=== PATIENT | female | born 1995 | race Caucasian/White ===

== ENCOUNTER 2021-01-19 01:42 | Emergency (ER) | payer OTHER ==
[2021-01-19 02:18] LABS: BASOPHIL 0.6 % (0-2); EOSINOPHIL 2.1 % (0-5); HCT 41.1 % (37.0-47.0); HGB 12.7 g/dl (12.5-16.0); LYMPHOCYTE 40.4 % (15-48); MCH 27.1 pg (25.0-31.0); MCHC 30.9 g/dL (32.0-36.0); MCV 87.8 fL (78.0-100.0); MPV 10.6 fL (6.0-9.5); NEUTROPHIL 49.7 % (41-80); NRBC 0; PLT 329 K/uL (150-400); RBC 4.68 M/uL (4.20-5.40); RDW 13.6 % (11.5-14.0); WBC 6.3 K/uL (4.0-10.5)
[2021-01-19 02:35] LABS: ALBUMIN 3.2 g/dL (3.4-5.0); BILIRUBIN - TOTAL 0.3 mg/dL (0.2-1.0); CREATININE 0.89 mg/dL (0.51-0.95); TOTAL PROTEIN 7.2 g/dL (6.4-8.2)
[2021-01-19 03:21] LABS: BILIRUBIN NEGATIVE (NEGATIVE); BLOOD NEGATIVE Ery/uL (NEGATIVE); CLARITY CLEAR (CLEAR); COLOR YELLOW (YELLOW); GLUCOSE (U) NORMAL (NORMAL); LEUKOCYTES 1+ Leu/uL (NEGATIVE); NITRITE NEGATIVE (NEGATIVE); PROTEIN NEGATIVE (NEGATIVE); SPECIFIC GRAVITY >=1.030 (1.001-1.030); UROBILINOGEN 0.2 mg/dL (0.2-1.0); pH 5.5 (5.0-9.0)
[2021-01-19 03:31] LABS: BACTERIA 2+; SQUAMOUS EPITHELIAL CELLS RARE; URINARY RBC RARE; URINARY WBC 20-50
[2021-01-19] MEDS ORDERED: BACTRIM DS TAB1 EACH PO (05:31)
== END 2021-01-19 05:43 | disposition home or self-care (01) ==
LOC: FER 01:42
PROVIDERS: Emergency Medicine
DX: N39.0 Urinary tract infection, site not specified (principal); R10.11 Right upper quadrant pain; R10.31 Right lower quadrant pain; E66.01 Morbid (severe) obesity due to excess calories; Z98.890 Other specified postprocedural states; Z90.49 Acquired absence of other specified parts of digestive tract
CPT/HCPCS: 36415; 71275; 80053; 81001; 85025; 87088; J0696; J1170; J2405; J7030; Q9967

== ENCOUNTER 2021-04-30 23:51 | Emergency (ER) | payer OTHER ==
[~2021-04-30 23:51] MED LIST: BACTRIM DS TAB1 EACH PO
[2021-05-01 03:27] LABS: BASOPHIL 0.6 % (0-2); EOSINOPHIL 1.2 % (0-5); HCT 41.1 % (37.0-47.0); HGB 12.7 g/dl (12.5-16.0); LYMPHOCYTE 24.7 % (15-48); MCH 26.8 pg (25.0-31.0); MCHC 30.9 g/dL (32.0-36.0); MCV 86.9 fL (78.0-100.0); MONOCYTE 6.3 % (0-12); MPV 10.8 fL (6.0-9.5); NEUTROPHIL 66.9 % (41-80); NRBC 0; PLT 274 K/uL (150-400); RBC 4.73 M/uL (4.20-5.40); RDW 12.4 % (11.5-14.0); WBC 6.6 K/uL (4.0-10.5)
[2021-05-01 03:48] LABS: ALBUMIN 3.5 g/dL (3.4-5.0); BILIRUBIN - TOTAL 0.4 mg/dL (0.2-1.0); BUN/CREAT RATIO (CALC) 16.7 RATIO; CREATININE 0.9 mg/dL (0.51-0.95); GLOBULIN (CALCULATION) 3.7 g/dL; POTASSIUM 4.1 mmol/L (3.5-5.1); TOTAL PROTEIN 7.2 g/dL (6.4-8.2)
[2021-05-01 04:58] LABS: BILIRUBIN NEGATIVE (NEGATIVE); BLOOD NEGATIVE Ery/uL (NEGATIVE); CLARITY CLEAR (CLEAR); COLOR YELLOW (YELLOW); GLUCOSE (U) NORMAL (NORMAL); LEUKOCYTES TRACE Leu/uL (NEGATIVE); NITRITE NEGATIVE (NEGATIVE); PROTEIN NEGATIVE (NEGATIVE); SPECIFIC GRAVITY >=1.030 (1.001-1.030); UROBILINOGEN 0.2 mg/dL (0.2-1.0); pH 5.5 (5.0-9.0)
[2021-05-01 05:03] LABS: BACTERIA 2+
[2021-05-01 05:04] LABS: AMORPHOUS URATES CRYSTALS TRACE
== END 2021-05-01 06:30 | disposition home or self-care (01) ==
LOC: FER 23:51
PROVIDERS: Emergency Medicine Emergency Medical Services
DX: K59.00 Constipation, unspecified (principal); R16.1 Splenomegaly, not elsewhere classified; K76.0 Fatty (change of) liver, not elsewhere classified
CPT/HCPCS: 36415; 80053; 81001; 83690; 85025; J1170; J1885; J2405; J7030

== ENCOUNTER 2021-05-04 15:38 | Emergency (ER) | payer OTHER ==
[2021-05-04 16:15] LABS: BILIRUBIN 2+ mg/dL (NEGATIVE); BLOOD NEGATIVE Ery/uL (NEGATIVE); CLARITY CLEAR (CLEAR); COLOR YELLOW (YELLOW); GLUCOSE (U) NORMAL (NORMAL); LEUKOCYTES NEGATIVE Leu/uL (NEGATIVE); NITRITE NEGATIVE (NEGATIVE); PROTEIN NEGATIVE (NEGATIVE); SPECIFIC GRAVITY 1.015 (1.001-1.030); UROBILINOGEN 0.2 mg/dL (0.2-1.0)
[2021-05-04 16:22] LABS: BASOPHIL 0.5 % (0-2); EOSINOPHIL 2.2 % (0-5); HCT 39.9 % (37.0-47.0); HGB 12.5 g/dl (12.5-16.0); LYMPHOCYTE 25.3 % (15-48); MCH 27.4 pg (25.0-31.0); MCHC 31.3 g/dL (32.0-36.0); MCV 87.3 fL (78.0-100.0); MONOCYTE 8.1 % (0-12); MPV 10.9 fL (6.0-9.5); NEUTROPHIL 63.7 % (41-80); NRBC 0; PLT 241 K/uL (150-400); RBC 4.57 M/uL (4.20-5.40); RDW 12.9 % (11.5-14.0); WBC 5.5 K/uL (4.0-10.5)
[2021-05-04 16:35] LABS: INR 1.14 (0.9-1.2); PTT 30.1 SECONDS (24.4-34.7)
[2021-05-04 16:36] LABS: D-DIMER 0.51 ug/mLFEU (0.00-0.41)
[2021-05-04 16:47] LABS: ALBUMIN 3.4 g/dL (3.4-5.0); BUN/CREAT RATIO (CALC) 10.4 RATIO; CREATININE 0.96 mg/dL (0.51-0.95); GLOBULIN (CALCULATION) 4.2 g/dL; POTASSIUM 3.9 mmol/L (3.5-5.1); TOTAL PROTEIN 7.6 g/dL (6.4-8.2)
[2021-05-04 16:55] LABS: BILIRUBIN - TOTAL 4.9 mg/dL (0.2-1.0)
[2021-05-04 16:57] LABS: CORONAVIRUS 2019 SARS-COV-2 NEGATIVE (NEGATIVE); INFLUENZA A NAA NEGATIVE (NEGATIVE)
[2021-05-04] MEDS ORDERED: ONDANSETRON HCL4 MG PO (20:00)
[2021-05-04] MEDS ORDERED: PERCOCET 10-321 EACH PO (20:00)
[2021-05-04] MEDS ORDERED: PHENERGAN25 M1 PO (20:00)
[2021-05-06 08:10] LABS: HBSAG SCREEN Negative (Negative); HEP A AB, IGM Negative (Negative); HEP B CORE AB, IGM Negative (Negative); HEP C VIRUS AB <0.1 (0.0-0.9)
== END 2021-05-04 21:01 | disposition home or self-care (01) ==
LOC: FER 15:38
PROVIDERS: Internal Medicine; Nurse Practitioner Family
DX: R10.31 Right lower quadrant pain (principal); R17 Unspecified jaundice; R79.89 Other specified abnormal findings of blood chemistry; Z20.822 Contact with and (suspected) exposure to COVID-19
CPT/HCPCS: 36415; 71045; 71275; 80053; 80074; 81003; 83690; 84484; 85025; 85379; 85610; 85730; 93005; J2270; J2405; J7030; Q9967; U0002